=== PATIENT | male | born 1970 | race Caucasian/White ===

== ENCOUNTER 2016-06-09 19:24 | Emergency (ER) | payer SELFPAY ==
[2016-06-09 19:35] VITALS: BP 144/86; PULSE 114; TEMP 98.2; BMI 41.6
[2016-06-09] MEDS ORDERED: IBUPROFEN 400 MG TABLET (FP) PO ONE (19:58)
[2016-06-09] MEDS ORDERED: IBUPROFEN 600 MG TABLET (FP) PO ONE (20:03)
--- NOTE | 2016-06-09 20:35 | PDOC ---
History of Present Illness - General Chief Complaint: Injury Stated Complaint: WORK INJURY/LT ANKLE PAIN Time Seen by Provider: 06/09/16 19:47 History Source: Patient Exam Limitations: No Limitations - History of Present Illness Initial Comments: 06/09/16 20:31 45 yr male states he rolled his left ankle yesterday at work. pt has pain to left lateral ankle with swelling. Lower Ext. Injury Location - Specific Injury Location Ankle: left pain, left swelling Past History - Past Medical History Allergies/Adverse Reactions: Allergies Allergy/AdvReac Type Severity Reaction Status Date / Time No Known Allergies Allergy Verified 06/09/16 19:35 Home Medications: Ambulatory Orders NK [No Known Home Medication] 06/09/16 Asthma: Yes Other medical history: obesity - Psycho/Social/Smoking Cessation Hx Suicidal Ideation: No Smoking History: Current every day smoker Number of Cigarettes Smoked Daily: 5 Information on smoking cessation initiated: No Review of Systems - Review of Systems Able to Perform ROS?: Yes Is the patient limited Pashto proficient: No Constitutional: No: Symptoms Reported HEENTM: No: Symptoms Reported Respiratory: No: Symptoms reported Cardiac (ROS): No: Symptoms Reported ABD/GI: No: Symptoms Reported : No: Symptoms Reported Musculoskeletal: Yes: Symptoms Reported Integumentary: No: Symptoms Reported Neurological: No: Symptoms reported *Physical Exam - Vital Signs Last Vital Signs Temp Pulse Resp BP Pulse Ox 98.2 F 114 H 20 144/86 97 06/09/16 19:31 06/09/16 19:31 06/09/16 19:31 06/09/16 19:31 06/09/16 19:31 - Physical Exam General Appearance: Yes: Nourished, Appropriately Dressed, Obese HEENT: positive: EOMI, SHERIDAN Extremity: positive: Normal Capillary Refill, Tender (left lateral malleolus), Swelling. negative: Coldness, Erythema Integumentary: positive: Normal Color, Dry, Warm Neurologic: positive: Fully Oriented, Alert, Normal Mood/Affect, Normal Response , Motor Strength 5/5 Procedures - Splinting Pre-Made Type: aircast (left ankle) ED Treatment Course - RADIOLOGY Radiology Studies Ordered: Category Date Time Status ANKLE & FOOT-LEFT* [RAD] Stat Radiology 06/09/16 20:03 Taken - Medications Given in the ED: ED Medications Discontinued Medications Generic Name Dose Route Start Last Admin Trade Name Freq PRN Reason Stop Dose Admin Ibuprofen 800 mg 06/09/16 20:03 06/09/16 20:05 Motrin - PO 06/09/16 20:04 800 mg ONCE ONE Administration Medical Decision Making - Medical Decision Making 06/09/16 20:33 c: left ankle injury at work yesterday will xray motrin for pain nv intact strong dp 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 *DC/Admit/Observation/Transfer Diagnosis at time of Disposition: Ankle sprain Qualifiers: Encounter type: initial encounter Involved ligament of ankle: unspecified ligament Laterality: left Qualified Code(s): S93.402A - Sprain of unspecified ligament of left ankle, initial encounter - Discharge Dispostion Disposition: HOME Condition at time of disposition: Good - Referrals Referrals: Arnold Luz MD [Primary Care Provider] - Balta Jane MD [Staff Physician] - - Patient Instructions Additional Instructions: elevate and apply ice every 2hrs for 20 minutes take motrin 600mg every 6hrs for pain as needed use the air cast splint at all times except to bathe non weight bearing follow with the orthopedist this week for follow up
== END 2016-06-09 20:53 | disposition home or self-care (01) ==
LOC: JERFT 19:24
PROC: 2W3TX1Z Immobilization of Left Foot using Splint (ICD-10-PCS; principal; 2016-06-09)
DX: S93.402A Sprain of unspecified ligament of left ankle, initial encounter (principal); X58.XXXA Exposure to other specified factors, initial encounter; Y93.9 Activity, unspecified; Y92.9 Unspecified place or not applicable; F17.210 Nicotine dependence, cigarettes, uncomplicated
CPT/HCPCS: 73610-TC-LT; 73630-TC-LT; 99281-25